=== PATIENT | female | born 1995 | race Caucasian/White ===

== ENCOUNTER 2023-09-11 11:02 | Emergency (ER) | payer OTHER, SELFPAY ==
[2023-09-11 11:10] VITALS: BP 149/82; PULSE 91; RESP 20; TEMP 37; O2SAT 98
--- NOTE | 2023-09-11 12:16 | ED.URI ---
HPI - URI/Sore Throat General Chief Complaint: Upper Respiratory Infection Stated Complaint: Congestion/Cough/Body Aches Time Seen by Provider: 09/11/23 12:16 Source: patient, RN notes reviewed and old records reviewed Mode of arrival: ambulatory Limitations: no limitations History of Present Illness HPI Narrative: 28 year old female who presents to [facility] care with complaints of congestion, headache,and body aches for the past 2 days. Patient reports that she works at [employer] in [place] and has been exposed to COVID patients at the facility. Patient reports that she did home COVID test which was positive but work will not accept her home test. Patient reports that she has been taking Ibuprofen for her symptoms. MD elicited complaint: cough and other (headache and body aches) Onset (ago): day(s) (2) Pain scale (0-10): 3 Able to tolerate fluids by mouth: Yes Treatments prior to arrival: ibuprofen Related Data Home Medications Medication Instructions Recorded Confirmed omeprazole 20 mg capsule,delayed 40 mg PO QAM 09/11/23 09/11/23 release Allergies Allergy/AdvReac Type Severity Reaction Status Date / Time No Known Allergies Allergy Verified 09/11/23 11:29 Review of Systems Review of Systems: CONSTITUTIONAL: Reports malaise, chills, sweats, or fever. EYES: Denies visual changes, redness, or discharge. ENT: Reports rhinorrhea, congestion, sinus pain, no otalgia and no sore throat. CARDIOVASCULAR: Denies chest pain, palpitations, or edema. RESPIRATORY: Reports cough.? Denies dyspnea. GASTROINTESTINAL: Denies abdominal pain, nausea, vomiting, diarrhea SKIN: Denies rash or itching. MUSCULOSKELETAL: Reports myalgia. NEUROLOGIC: Reports headache. All systems reviewed & are unremarkable except as noted in HPI and below PMFSH Past Medical History Medical History (Updated 09/13/23 @ 12:32 by Ema Lowe NP) GERD (gastroesophageal reflux disease) PCOS (polycystic ovarian syndrome) Pilonidal cyst Social History Social History (Updated 09/13/23 @ 12:32 by Ema Lowe NP) Smoking status: Never smoker Alcohol intake: current Alcohol use details: socia Substance use type: does not use Living arrangements: with family Gender identity (if verbalized by the patient): Female Comments At time of signature, agree with nursing past medical, surgical, social and family history. There is no relevant family history pertinent to the presenting complaint Exam Narrative: GENERAL: Well-appearing, well-nourished, and in no acute distress. HEAD: Normocephalic EYES: PERRLA, conjunctivae clear ENT: Nares clear, turbinates edematous and erythematous, clear discharge. Mucous membranes moist. TM pearly john with dull light reflex bilaterally; no tragal tenderness. Oropharynx erythematous without lesions. Tonsils not enlarged and without exudate, no drooling, no hoarseness, no trismus, uvula midline.post nasal drainage NECK: Supple. No lymphadenopathy CHEST: Clear to auscultation, breath sounds equal. No wheezing, rhonchi, rales, or stridor. No respiratory distress, speaks in full sentences.cough dry,SAO2 98% on room air HEART: Regular rate and rhythm. No murmur heard. SKIN: Warm, dry, no rash. NEURO: Alert and oriented x3. PSYCH: Normal mood and affect Course Course Emergency Course: Patient is aware of diagnosis, understands and agrees to treatment plan.? Anticipatory guidance given.? Patient agrees to follow-up as directed and is aware of reasons to seek care at the emergency department. Portions of this record may have been created with voice recognition software Level of Care: Express Care Visit Vital Signs Vital signs: Vital Signs Temperature 37.0 C 09/11/23 11:10 Pulse Rate 91 09/11/23 11:10 Respiratory Rate 20 09/11/23 11:10 Blood Pressure 149/82 H 09/11/23 11:10 Pulse Oximetry 98 09/11/23 11:10 Oxygen Delivery Room Air 12
== END 2023-09-11 12:30 | disposition home or self-care (01) ==
PROVIDERS: Emergency Provider Registered Nurse
DX: U07.1 COVID-19 (principal); K21.9 Gastro-esophageal reflux disease without esophagitis; E28.2 Polycystic ovarian syndrome
CPT/HCPCS: 87426; 99213; C9803; G0463

== ENCOUNTER 2024-02-28 15:28 | Outpatient (CLI) | payer OTHER, SELFPAY ==
[2024-02-28 16:11] LABS: CRP < 0.5 mg/dL (<1.0)
[2024-03-05 08:19] LABS: Immunoglobulin A 318 mg/dL (47-310); TTG IGA AB <1.0 U/mL
== END 2024-02-28 15:29 | disposition home or self-care (01) ==
LOC: ANHLAB 15:30
PROVIDERS: Visit Provider Nurse Practitioner Family
DX: R19.7 Diarrhea, unspecified (principal); R15.2 Fecal urgency
CPT/HCPCS: 36415; 82784; 86140; 86364

== ENCOUNTER 2024-03-22 07:58 | Outpatient (CLI) | payer OTHER, BC, SELFPAY ==
--- NOTE | ~2024-03-22 | NM_ITS ---
EXAM: NM gastric emptying study DATE: 03/22/2024 13:16 INDICATION: Gastroesophageal reflux disease. Nausea. Early satiety. TECHNIQUE: A gastric emptying study was performed using the methodology of Kelsey CEDILLO, et al. J Nucl Med 2007; 48:568-572. The patient was given a meal consisting of 2 scrambled eggs labeled with 0.972 mCi Tc-99m sulfur colloid, 2 slices of toast, two packages of jam, and approximately 120 mL of water . Simultaneous anterior and posterior 1-min images of the abdomen were obtained with the patient supi ne at multiple time points over a total period of 4 hours. The geometric mean of anterior and posteri or views was determined, and the percentage retention was calculated for each time point. COMPARISON: None. FINDINGS: Gastric retention of the radiotracer-labeled meal was 70%, 41%, and 12% at the 1-hour, 2-h our, and 4-hour time points, respectively. With this technique, apparent rapid gastric emptying is loza ggested by <30% gastric retention at 1 hour. Delayed gastric emptying is defined by gastric retention of >90% at 1 hour, >60% retention at 2 hours, or >10% retention at 4 hours. IMPRESSION: 1. Delayed gastric emptying. Reviewed, dictated and finalized at location A.
== END 2024-03-22 07:59 | disposition home or self-care (01) ==
PROVIDERS: PCP Nurse Practitioner; Visit Provider Nurse Practitioner Family
DX: K21.9 Gastro-esophageal reflux disease without esophagitis (principal); R11.0 Nausea; R68.81 Early satiety; K30 Functional dyspepsia
CPT/HCPCS: 78264; A9541

== ENCOUNTER 2024-03-22 08:56 | Outpatient (NON) | payer OTHER, BC, SELFPAY ==
[2024-03-30 19:03] LABS: Calprotectin, Stool 177 mcg/g
[2024-03-31 20:32] LABS: Pancreatic Elastase, Stool >500 mcg/g
== END 2024-03-22 08:57 | disposition home or self-care (01) ==
LOC: ANHLAB 08:58
PROVIDERS: PCP Nurse Practitioner; Visit Provider Nurse Practitioner Family
DX: R15.2 Fecal urgency (principal); R19.7 Diarrhea, unspecified
CPT/HCPCS: 78264; 82653; 83993; A9541

== ENCOUNTER 2024-10-08 09:15 | Emergency (ER) | payer BC, OTHER, SELFPAY ==
[2024-10-08 09:21] VITALS: BP 125/59; PULSE 134; RESP 18; TEMP 36.6; O2SAT 98
--- NOTE | 2024-10-08 09:39 | ED_ITS ---
HPI - URI/Sore Throat General Chief Complaint: Upper Respiratory Infection Stated Complaint: Cough/Chest Tightness/Fever Time Seen by Provider: 10/08/24 09:39 Source: patient Mode of arrival: ambulatory Limitations: no limitations History of Present Illness HPI Narrative: 29-year-old female presented for complaint of cough, headache, body aches, sinus congestion, fever/chills. Also reports nausea and vomiting. Feeling worse x2 days. Denies sob, wheezing. States the vomiting during has been better for the past few weeks, but has had a few episodes in the last 2 days. Taking Tylenol. Notifed OBGYN who advised eval without the need to go to OB, as she is reporting normal movement. Related Data Home Medications ?Medication ?Instructions ?Recorded ?Confirmed ?Last Taken ?Type famotidine 20 mg tablet 20 mg PO DAILY 02/28/24 02/29/24 Unknown History levothyroxine 25 mcg capsule 25 mcg PO DAILY 02/28/24 02/29/24 Unknown History omeprazole 40 mg capsule,delayed 40 mg PO DAILY 02/28/24 02/29/24 Unknown History release Allergies Allergy/AdvReac Type Severity Reaction Status Date / Time No Known Allergies Allergy Verified 10/08/24 09:44 Review of Systems Review of Systems: CONSTITUTIONAL: reports body aches, fever, chills, or sweats. EYES: Denies visual changes, redness, or discharge. ENT: Denies rhinorrhea, congestion, sore throat, or otalgia. CARDIOVASCULAR: Denies chest pain, palpitations, or edema. RESPIRATORY: Reports cough, denies sob, wheezing. GASTROINTESTINAL: Denies abdominal pain, reports nausea, vomiting SKIN: Denies rash MUSCULOSKELETAL: Denies back pain, joint pain, or myalgia. NEUROLOGIC: reports headache All systems reviewed & are unremarkable except as noted in HPI and below PMFSH Past Medical History Medical History Pilonidal cyst GERD (gastroesophageal reflux disease) PCOS (polycystic ovarian syndrome) Social History Social History Smoking status: Never smoker Alcohol intake: current Alcohol use details: socia Substance use type: does not use Living arrangements: with family Gender identity (if verbalized by the patient): Female Comments At time of signature, I have reviewed and agree with nursing past medical, surgical, social and family history unless otherwise noted. Please see nursing chart for further information. There is no relevant family history pertinent to the presenting complaint Exam Narrative: GENERAL: Well-appearing, in no acute distress. EYES: EOMI. No redness or drainage. Conjunctivae normal. ENT: Mucous membranes pink and moist. No rhinorrhea. TMs normal bilaterally. Throat normal. Uvula midline. NECK: Normal AROM. Supple. CHEST: No respiratory distress. Lungs clear to all saunders. HEART: Regular rate and rhythm. No murmur appreciated. ABDOMEN: gravid. SKIN: Warm, dry, no rash. Capillary refill normal. Normal skin turgor. NEURO: Alert and oriented x3. Gait steady. PSYCH: Normal affect. Course Course Emergency Course: Patient is aware of diagnosis, understands and agrees to treatment plan. Anticipatory guidance given. Patient agrees to follow-up as directed and is aware of reasons to seek care at the emergency department. Portions of this record may have been created with voice recognition software Level of Care: Express Care Visit Vital Signs Vital signs: Vital Signs Temperature 98 F 10/08/24 09:21 Pulse Rate 134 H 10/08/24 09:21 Respiratory Rate 18 10/08/24 09:21 Blood Pressure 125/59 L 10/08/24 09:21 Pulse Oximetry 98 10/08/24 09:21 Oxygen Delivery Room Air 10/08/24 09:21 Temperature 98 F 10/08/24 09:21 Pulse Rate 134 H 10/08/24 09:21 Respiratory Rate 18 10/08/24 09:21 Blood Pressure 125/59 L 10/08/24 09:21 Pulse Oximetry 98 10/08/24 09:21 Oxygen Delivery Room Air 10/08/24 09:21 MDM - URI/Sore Throat MDM Narrative Medical decision making narrative: positive influenza. FHT 150 Discussed physical exam findings. Advised supportive measures and signs/symptoms to go to the ER. Pt is appropriate for outpt treatment and f/u. Differential Diagnosis Differential diagnosis: Likely upper respiratory infection, viral infection, bronchitis, influenza, pharyngitis and other Discharge Plan Discharge Clinical Impression: Influenza Patient Disposition: Home, Self-Care Condition: Stable Instructions: Antibiotic Form, Influenza (ED) Additional Instructions: Influenza positive You should avoid crowds until you are fever free for 24 hours without the use of fever reducing medications, or the symptoms are improved Rest. Drink plenty of fluids. Tylenol 1000mg every 8 hours as needed for pain/fever Recommend Flonase spray and Zyrtec (or Claritin/Cheryle) for sinus pressure/congestion over the counter Cough syrup may cause drowsiness; avoid driving or take it at night time. speak with your OBGYN before taking any [id number] medications during Follow up with your primary care provider as needed Go to the ER for worsening symptoms or concerns Patient Language: Citizen Of [place] Prescriptions: No Action omeprazole 40 mg capsule,delayed release(DR/EC) 40 mg PO DAILY famotidine 20 mg tablet 20 mg PO DAILY levothyroxine 25 mcg capsule 25 mcg PO DAILY metoclopramide HCl [Reglan] 10 mg tablet 10 mg PO .ac Qty: 90 3RF Follow-up/Referrals: Jose A,Radha Alvarez [Primary Care Provider] - Stand Alone Forms: Work/School Release IP
[2024-10-08 09:45] LABS: EDCOVIDSCREEN Negative (Negative); EDINFLUASCREEN Positive (Negative); EDINFLUBSCREEN Negative (Negative)
[2024-10-08 09:55] VITALS: PULSE 120
--- OUTSIDE RECORDS SUMMARY | 2024-10-12 10:08 | XMS_ITS | Clinical Summary ---
Author Organization [facility] Address [address] [place] [address] Care Team Providers Care Hydraulic Rockbreaker Operator Name Role Phone Jose ARadha YUKO Primary Care Provider [phone] Allergies No known active allergies Medications ondansetron ODT (ZOFRAN-ODT) 4 mg disintegrating tabletIndications: Chronic GERD Take 1 tablet (4 mg total) by mouth every 8 (eight) hours as needed for nausea or vomiting 30 tablet 1 4 10/18/19 25 Active levothyroxine (SYNTHROID) 25 mcg tabletIndications: Family planning education, guidance, and counseling,Other specified hypothyroidism TAKE 1 TABLET (25 MCG TOTAL) BY MOUTH BOILER ENGINEER BEFORE BREAKFAST 30 tablet 3 4 12/19/19 25 Active famotidine (PEPCID) 20 mg tabletIndications: Kristian-Shafer Syndrome Take 1 tablet (20 mg total) by mouth 2 (two) times a day 180 tablet 1 4 07/03/20 25 Active omeprazole (PriLOSEC) 40 mg capsuleIndications :Chronic GERD Take 1 capsule (40 mg total) by mouth daily 90 capsule 1 4 07/03/20 25 Active Active Problems Problem Noted Date Diagnosed Date Irritable bowel syndrome with diarrhea 4 PCOS (polycystic ovarian syndrome) 10/19/2023 Assessment & Plan (10/19/2023 5:29 PM SEWING MACHINE TESTER): Stable, follows with WELL SERVICE FLOORPERSON Trying to get Continue Metformin and levothryoxine History of ovarian cyst 09/27/2023 Anxiety 07/17/2021 Sacrococcygeal disorders, 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 08/07/2015 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 Overview (11/03/2023): Overview: TSH nl TPO 403 Needs yearly TSH No masses noted TSH nl TPO 403 Needs yearly TSH No masses noted Assessment & Plan (10/19/2023 5:32 PM SEWING MACHINE TESTER): History of thyroid goiter; last TSH 2.81 Had been having yearly US that were normal so was moved to every 3 years; patient due for follow up Migraine with aura and witho ut status migrainosus, not intractable 05/31/2015 Gastro-esophageal reflux disease without esophag itis 05/25/2015 Overview (11/03/2023): Overview: Long hx--never been scoped Father with GERD h pylori negative stool Ag 06/04 Should be scoped if still pain on prilosec Long hx--never been scoped Father with GERD h pylori negative stool Ag 06/04 Should be scoped if still pain on prilosec Assessment & Plan (10/19/2023 5:16 PM SEWING MACHINE TESTER): Chronic, has had since age 13 Omeprazole 40 mg daily Famotidine 20 mg as needed Mild intermittent asthma, uncomplicated 05/20/20 15 Overview (11/03/2023): Overview: Mainly childhood Seasonal problems in spring Peak flows 450 8/15 off all asthma meds Mainly childhood Seasonal problems in spring Peak flows 450 8/15 off all asthma meds Other specified disorders of Eustachian tube, unspecified ear 06/08/2014 Estimated Date of Delivery Comme nts Yes 01/15/2025 Based on last me nstrual period of 04/10/2024 Encounters Date Type Department Care Team Description 10/05/2024 3:15 PM SEWING MACHINE TESTER Office Visit [facility] [address] [place] [address] Ayleen Frazier PA 25 weeks gestation of (Primary Dx) 09/27/2024 12:55 PM SEWING MACHINE TESTER - 09/27/2024 11:59 PM SEWING MACHINE TESTER Hospital Encounter [facility] Maternal Medicine Ultrasound[facility] [address] [place] [phone] Family history of congenital heart defect Discharge Disposition: Discharge to home or self care 09/06/2024 3:45 PM SEWING MACHINE TESTER Office Visit [facility] [address] [place] [address] Elida Cotton MD care, first in second trimester (Primary Dx); Other iron deficiency anemia; Hypothyroidism, unspecified type 08/30/2024 1:39 PM SEWING MACHINE TESTER - 08/30/2024 11:59 PM SEWING MACHINE TESTER Hospital Encounter [facility] Maternal Medicine [facility]trasound[facility] [address] [place] [address] Encounter for supervision of normal first in first trimester; 12 weeks gestation of Discharge Disposition: Discharge to home or self care 08/14/2024 3:56 PM SEWING MACHINE TESTER - 08/14/2024 11:59 PM SEWING MACHINE TESTER Hospital Encounter [facility] [address] [place] [address] Pelvic and perineal pain Discharge Disposition: Discharge to home or self care 08/08/2024 8:45 AM SEWING MACHINE TESTER Lab [address] [place] [address] First trimester 08/08/2024 Telephone [facility] [address] [place] [address] Rigo, Ellen L., RN In office doppler 08/02/2024 3:45 PM SEWING MACHINE TESTER Routine [facility] [address] [place] [address] Elida Cotton MD First trimester (Primary Dx); Primary stress urinary incontinence from Last 3 Months Immunizations Name Administration Dates Next Due BCG 04/05/2014 DTP / HiB 11/27/1996, 6,1995,10/12 DTaP 03/06/1996,1995,1995 HPV9 04/18/2018,08/18/2012 Hep A, Pediatric 09/09/2009,05/11/2008 Hep B Vaccine 03/06/1996,1995,1995 Hep B, Adolescent or Pediatric 03/06/1996,1995,1995 IPV 02/21/2001, 6,1995,10/12 Influenza, Quadrivalent, Spl it, Preservative Free, Intramuscular 05/18/2017 Influenza, Split 06/25/2014 Influenza, Trivalent, Cell Culture-based MDCK, Preservative Free, Antibiotic Free, Intramuscular 06/20/2020,07/15/2019 Influenza, Trivalent, Preser vative Free, Intramuscular 06/05/2024 Influenza, Unspecified 07/22/2023,2021,06/09/2021,07/15,06/25/2014 MMR 03/27/2020,02/21/2001,11/27/1996 Meningococcal MCV4P (Menactra) 06/25/2014 OPV 03/06/1996,1995,1995 Pfizer SARS-CoV-2 Monovalent Vaccination (12+ Yrs) PURPLE 10/16/2021 TD Preservative Free 05/11/2008,02/22/20 01,03/06/1996,12/12,1995 Tdap 03/07/2020 Varicella 05/02/2020, 0,05/11/2008,09/29 Surgical History Surgery Date Site/Laterality Comments FRACTURE SURGERY NASAL SINUS SURGERY PILONIDAL CYSTECTOMY 09/20/2018 - 09/19/2019 Medical History Medical History Date Comments GERD (gastroesophageal reflux disease) PCO (polycystic ovaries) Anxiety IBS (irritable bowel syndrome) Family History Medical History Relation Name Comments Hypertension Father Father Alcohol abuse Maternal Grandfather Maternal grandfathe r Cancer Maternal Grandfather Maternal grandfather Alzheimer's disease Maternal Grandmother Maternal gran dmother Alcohol abuse Mother Mother Depression Mother Mother Miscarriages / Stillbirths Mother Mother Breast cancer Other Aunt Cancer Paternal Grandfather Paternal grandfather Heart disease Paternal Grandfather Paternal grandfathe r Breast cancer Paternal Grandmother Paternal grandfater Cancer Paternal Grandmother Paternal grandfater Colon cancer Neg Hx Ovarian cancer Neg Hx Uterine cancer Neg Hx Relation Name Status Comments Father Father Maternal Grandfather Maternal grandfather Maternal Grandmother Maternal grandmother Mother Mother Other Aunt Alive Paternal Grandfather Paternal grandfather Paternal Grandmother Paternal grandfater Social History Tobacco Use Types Packs/Day Years Used Date Smoking Tobacco: Never Smokeless Tobacco: Never Tobacco Cessation:Counseling Given: Not Answered AUDIT-C Answer Date Recorded Q1: How often do you have a drink containing alc ohol? 2-4 times a month 10/19/2023 Q2: How many drinks containi ng alcohol do you have on a typical day when you are drinking? 1 or 2 10/19/2023 Q3: How often do you have si x or more drinks on one occasion? 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 Not on file Not o n file Obstetrics History Para Term AB IAB SAB Ectopic Multiple Livin g Live Births 1 0 0 0 0 0 0 0 0 0 0 Date Outcome GA Total Labor Labor/2nd/3rd Weight Sex Type Anes PTL Lilly A1 A5 Name Clin Current Summary Episode Dates Number of Fetuses Estimated Date of Delivery 06/05/2024 - Present (10/12/2024) 1 01/15/2025 (set by Elida Cotton MD on 06/05/2024 based on Last Menstrual Period on 04/10/2024) Dating Summary Based On DIANA GA Diff Last Menstrual Period on 04/10/2024 01/15/2025 Working Ultrasound on 06/05/2024 01/16/2025 -1d GA:7w6d Overview and Plan :Carlos sex:Male Vitals Pregravid Weight Height TWG (As of 10/12/2024) Pregrav id BMI 93 kg (205 lb) 167.6 cm (5' 6 ) -0.907 kg (-2 lb) 33.1 0 Notes Progress Notes - Office Visi t - 10/05/2024 - GA:25w3d 10/05/2024 - 25w3d - Ayleen Frazier PA Return OB Note at 25w3d complicated by -FOB with CHD - anatomy and ECHO with MFM - ordered -anx - no meds; previously on zoloft. Can restart PP -Hypothyroid - continue synthroid; TSH 2.2 on 08/08 -Delayed gastric emptying and Reflux- she is on reglan; omeprazole and famotidine. -Iron deficiency anemia - daily PO iron repeat iron studies at her 28 wga lab (hold iron for several days prior to) S +FM. Denies CEDILLO, changes in vision, spotting, leaking fluid or cramping. Restless leg syndrome is worsening. PFPT started yesterday and she liked it! She found everything to be normal. O BP 112/80 (BP Location: Left arm, Patient Position: Sitting) Ht 167.6 cm (5' 6 ) Wt 203 lb (92.1 kg) LMP 04/10/2024 BMI 32.77 kg/m?? See ACOG Labs No results found for: GBS Plan -Manager Marketing Communications- looking into it -breastpump ordered -RLS: will check iron next visit and start mg citrate -RTO 3 week(s) for tdap, 3rd trimester labs, TSH and iron labs (hold iron 3 days prior) Ayleen Frazier PA-C Cosigned by Elida Cotton MD at 10/06/2024 12:52 PM SEWING MACHINE TESTER NG MACHINE TESTER NG MACHINE TESTER Progress Notes - Office Visi t - 09/06/2024 - GA:21w2d 09/06/2024 - - Elida Cotton MD Return OB Note at 21w2d complicated by -FOB with CHD - anatomy and ECHO with MFM - ordered -anx - no meds; previously on zoloft. Can restart PP -Hypothyroid - continue synthroid; TSH 2.2 on 08/08 -Delayed gastric emptying and Reflux- she is on reglan; omeprazole and famotidine. -Iron deficiency anemia - daily PO iron repeat iron studies at her 28 wga lab (hold iron for several days prior to) S She reports doing somewhat better in terms of GI. She did not have a chance to discss with her senior business manager but over all feels symptoms are less frequent. We discussed adding in an ensure daily. Having some anxiety and mood disturbance. Previously on zoloft which was helpful but wants to try counseling first. We did discuss option of restarting immediately PP as well. Round ligament pain - reviewed. Is starting PFPT. O BP 118/72 (BP Location: Left arm, Patient Position: Sitting) Wt 201 lb (91.2 kg) LMP 04/10/2024 BMI 32.44 kg/m?? See ACOG Plan RTO 4 week(s) Elida Cotton MD NG MACHINE TESTER Progress Notes - Routine Pre elsie - 08/02/2024 - GA:16w2d 08/02/2024 - - Elida Cotton MD Return OB Note at 16w2d complicated by -FOB with CHD - anatomy and ECHO with MFM - ordered -anx - no meds -Hypothyroid - continue synthroid; TSH 2.9 06/05. -Delayed gastric emptying and Reflux- she is on reglan; omeprazole and famotidine. -Iron deficiency anemia - daily PO iron repeat iron studies 20-24wga (needs to hold PO iron x 3 days) S She reports she still has emesis once a day - usually upon first waking. Zofran is really constipating. Reglan was prescribed previously but hard to take q6 hours. Reviewed. Will reinitate. Discussed elevated head of bed, trying bland cereal right upon wakening. Has anatomy scheduled with MFM. O BP 117/78 Wt 203 lb (92.1 kg) LMP 04/10/2024 BMI 32.77 kg/m?? See ACOG Plan RTO 4 week(s) PFPT for stress UI Will touch base with GI Reviewed cough medications. Elida Cotton MD NG MACHINE TESTER Progress Notes - Routine Pre elsie - 07/07/2024 - GA:12w4d 07/07/2024 - 12w4d - Elida Cotton MD Return OB Note at 12w4d complicated by -FOB with CHD - anatomy and ECHO with MFM - ordered -anx - no meds -Hypothyroid - continue synthroid; TSH 2.9 06/05. -Delayed gastric emptying and Reflux- she is on reglan; omeprazole and famotidine. -Iron deficiency anemia - daily PO iron repeat iron studies 20-24wga (needs to hold PO iron x 3 days) S She reports doing okay overall - today was a bad day as far as nausea/vomiting! Has some zofran at home. A lot of her symptoms manifest as diarrhea due to her IBS. Tolerating the PO iron fine. Plans NIPT today O BP 123/86 Wt 199 lb (90.3 kg) LMP 04/10/2024 BMI 32.12 kg/m?? See ACOG Plan RTO 4 week(s) Weight last visit was 201# Elida Cotton MD Progress Notes - Initial Pre elsie - 06/05/2024 - GA:8w0d 06/05/2024 - 8w0d - Elida Cotton MD Patient ID: Lucille Betts is a 28 y.o. female Subjective Chief Complaint: No chief complaint on file. HPI Here for initial Patient's last menstrual period was 04/10/2024. Lucille presents with Bharathi for new OB visit. This was a result of letrozole, first month, due to irregular menses. She was started on synthroid and metformin prior to this due to irregular menses history. Having some nausea but no emesis. Reports she was diagnosed with delayed gastric emptying she is prescribed reglan QID. She has some looser stools as well. 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 Her last pap smear was 01/10. History of abnormal paps: no She denies h/o STDS or HSV. Medical She has a past medical history of Anxiety, GERD (gastroesophageal reflux disease), IBS (irritable bowel syndrome), and PCO (polycystic ovaries). Surgical She has a past surgical history that includes Fracture surgery; Nasal sinus surgery; and Pilonidal Cystectomy (2019). Family Family History Problem Relation Age of Onset Breast cancer Paternal Grandmother Cancer Paternal Grandmother Breast cancer Other Alcohol abuse Mother Depression Mother Miscarriages / Stillbirths Mother Hypertension Father Alcohol abuse Maternal Grandfather Cancer Maternal Grandfather Alzheimer's disease Maternal Grandmother Cancer Paternal Grandfather Heart disease Paternal Grandfather Colon cancer Neg Hx Uterine cancer Neg Hx Ovarian cancer Neg Hx No family h/o cystic fibrosis, CHD, bleeding disorders, down's syndrome No family history of DVT/PE, ovarian cancer, uterine cancer Genetic History: [-] Mother's Age > 34 years [-] Sickle Cell Disease or Trait () [-] Thalasemia (Amharic, Latvian, Medit or ; MCV <80) [-] Ceasar Sachs Disease (Congregational, Cajun, [place]inese [place]) [-] Down's Syndrome [-] Neural Tube Defects (Meningomyelocele, Spina Bifida or Anencephaly) [-] Other Developmental Delay [-] Cystic Fibrosis [-] Freehold's Chorea [-] Muscular Dystrophy [-] Hemophilia [-] Other Heritable condition Social Patient reports that she has never smoked. She has never used smokeless tobacco. She reports that she does not use drugs. Patient reports consuming alcoholic drinks , with a daily consumption of drinks. Patient denies daily consumption of 6 or more alcoholic drinks at one occasion. . She denies having any cats in the home. She had chicken pox vaccine as a child Meds Current Outpatient Medications: famotidine (PEPCID) 20 mg tablet, Take 1 tablet (20 mg total) by mouth 2 (two) times a day, Disp: 180 tablet, Rfl: 1 levothyroxine (SYNTHROID) 25 mcg tablet, TAKE 1 TABLET (25 MCG TOTAL) BY MOUTH BOILER ENGINEER BEFORE BREAKFAST, Disp: 30 tablet, Rfl: 0 omeprazole (PriLOSEC) 40 mg capsule, Take 1 capsule (40 mg total) by mouth daily, Disp: 90 capsule, Rfl: 1 ondansetron ODT (ZOFRAN-ODT) 4 mg disintegrating tablet, Take 1 tablet (4 mg total) by mouth every 8 (eight) hours as needed for nausea or vomiting, Disp: 30 tablet, Rfl: 1 Allergies Patient has no known allergies. Objective BP 120/80 Wt 215 lb (97.5 kg) LMP 04/10/2024 BMI 34.70 kg/m?? Gen-NAD TVUS- single live IUP measuring 7w6d c/w LMP of 8w0d. +FHT Assessment/Plan 28 year old G1 at 8w0d at new OB Supervision of PNV with folic acid daily OB labs ordered - OB panel, HIV, urine culture, GC/CT Pap 2022 wnl Discussed options for testing for cystic fibrosis, SMA and Fragile X. Genetic screening offered including first look screen, NIPT and quad screen. Patient desires NIPT and carrier screen. Reviewed course of care and normal Dietary and activity recommendations reviewed FOB with history of two holes in heart as a baby no surgery - MFM anatomy (18- 20 wga) and echo (24 wga). Will order next visit Anxiety - no meds currently Thyroid - TSH today. Continue synthroid. Started during her infertility eval Can stop metformin. Delayed gastric emptying and Reflux- she is on reglan; omeprazole and famotidine. Follow up in 1 month Elida Cotton MD Last Filed Vital Signs Vital Sign Reading Time Taken Comments Blood Pressure 112/80 10/05/2024 3:30 PM SEWING MACHINE TESTER Pulse 94 11/03/2023 4:49 PM SEWING MACHINE TESTER Temperature 36.5 ??C (97.7 ??F) 11/03/2023 4:49 PM CS T Respiratory Rate 16 10/19/2023 4:53 PM SEWING MACHINE TESTER Oxygen Saturation 98% 11/03/2023 4:49 PM SEWING MACHINE TESTER Inhaled Oxygen Concentration - - Weight 92.1 kg (203 lb) 10/05/2024 3:30 PM SEWING MACHINE TESTER Height 167.6 cm (5' 6 ) 10/05/2024 3:30 PM SEWING MACHINE TESTER Body Mass Index 32.77 10/05/2024 3:30 PM SEWING MACHINE TESTER Plan of Treatment Health Maintenance Due Date Last Done Comments HPV Vaccines (3 - 3-dose series) 07/11/2018 04/18/2018, 08/18/2012 Covid-19 Vaccine ( season) 2024 10/16/2021, 12/14/2020, 11/23/2020 Depression Screening 10/19/2024 10/19/2023 Pneumococcal vaccine <65 (1 of 2 - PCV) 11/29/2024 Postponed from 2001 (Patient declined, but will receive in the future) Regular Well Visit/Exam 18-64 01/13/2025 01/14/2024, 10/19/2023, 01/08/2023 Cervical Cancer Screening 01/08/2026 01/08/2023 DTaP/Tdap/Td Vaccine (6 - Td or Tdap) 03/07/2030 03/07/2020, 05/11/2008, 02/21/2001, Additional history exists Varicella Vaccines Completed 05/02/2020, 0 03/27/2020, 05/11/2008, Additional history exists Hepatitis C Screening Completed 06/05/2024 Influenza Vaccine Completed 06/05/2024, , 06/20/2022, Additional history exists Procedures Procedure Name Priority Date/Time Associated Diagnosis Comments POCT OB URINE SHORT DIP (GLUCOSE, PROTEIN, KETONES) Routine 10/05/2024 3:35 PM SEWING MACHINE TESTER 25 weeks gestation of US OB HEART WITH US FOLLOW UP (C) Schedule Routine, Read Routine (OP Routine) 09/27/2024 2:16 PM SEWING MACHINE TESTER Family history of congenital heart defect POCT OB URINE SHORT DIP (GLUCOSE, PROTEIN, KETONES) Routine 09/06/2024 3:50 PM SEWING MACHINE TESTER care, first in second trimester US OB DETAIL ANATOMY SINGLE OR FIRST GESTATION Schedule Routine, Read Routine (OP Routine) 08/30/2024 2:57 PM SEWING MACHINE TESTER Encounter for supervision of normal first in first trimester 12 weeks gestation of URINE CULTURE Routine 08/14/2024 4:20 PM SEWING MACHINE TESTER Pelvic and perineal pain FERRITIN Routine 08/08/2024 8:45 AM SEWING MACHINE TESTER First trimester IRON PROFILE W/ IBC Routine 08/08/2024 8:45 AM SEWING MACHINE TESTER First trimester THYROID FUNCTION CASCADE Routine 08/08/2024 8:45 AM SEWING MACHINE TESTER First trimester POCT OB URINE SHORT DIP (GLUCOSE, PROTEIN, KETONES) Routine 08/02/2024 3:47 PM SEWING MACHINE TESTER First trimester HEPATITIS C ANTIBODY Routine 06/05/2024 4:11 PM CDT Encounter for supervision of normal first in first trimester PAP WITH REFLEX TO HIGH RISK HPV Routine 01/08/2023 4:06 PM CDT Well woman exam with routine gynecological exam from Last 3 Months or Most Recently Relevant to Health Maintenance Results * POCT OB urine short dip (glucose, protein, ketones) (10/05/2024 3:35 PM SEWING MACHINE TESTER) Glucose, ur, POC Negative Negative MG/DL Protein, ur, POC Negative Negative Ketones, ur, POC Negative Negative Lot Number [id number] Comment:Kellen:small Urine 10/05/2024 3:35 PM SEWING MACHINE TESTER Result [facility] Ayleen VALENCIA POINT OF CARE TEST ORDERA BLES Final Result * US OB Heart with US Follow up (C) (09/27/2024 2:16 PM SEWING MACHINE TESTER) Fetus# Fetus1 VIEWPOINT Estimated Weight 697 g&grams VIEWPOINT Placenta Details posterior VIEWPOINT Presentation Vertex VIEWPOINT Anatomical Region Laterality Modality Body N/A Ultrasound 09/27/2024 1:01 PM SEWING MACHINE TESTER Impressions 09/27/2024 6:15 PM SEWING MACHINE TESTER Single intrauterine at 24w 2d with positive cardiac activity. Appropriate interval growth. AGA growth is noted with EFW at the 47%. ?? There are no cardiac structural malformations identified on screening echocardiogram. Normal amniotic fluid assessment. ??Normal posterior placenta. ?? Narrative Procedure Note Lizbeth Swenson MD - 09/27/2024 IMPRESSION: Single intrauterine at 24w 2d with positive cardiac activity. Appropriate interval growth. AGA growth is noted with EFW at the 47%. There are no cardiac structural malformations identified onscreening echocardiogram. Normal amniotic fluid assessment. Normal posterior placenta. Result [facility] Elida Cotton MD IMG OB US PROCEDURES F inal Result * POCT OB urine short dip (glucose, protein, ketones) (09/06/2024 3:50 PM SEWING MACHINE TESTER) Glucose, ur, POC Negative Negative MG/DL Protein, ur, POC Negative Negative Ketones, ur, POC Negative Negative Lot Number [id number] Urine 09/06/2024 3:50 PM SEWING MACHINE TESTER Result [facility] Elida Cotton MD POINT OF CARE TEST ORD ERABLES Final Result * US OB detail anatomy single or first gestation (08/30/2024 2:57 PM SEWING MACHINE TESTER) Fetus# Fetus1 VIEWPOINT Estimated Weight 342 g&grams VIEWPOINT Placenta Details posterior VIEWPOINT Presentation Variable VIEWPOINT Anatomical Region Laterality Modality Body N/A Ultrasound 08/30/2024 1:55 PM SEWING MACHINE TESTER Impressions 08/30/2024 2:54 PM SEWING MACHINE TESTER Single intrauterine @ 20w 2d with positive cardiac activity. size is consistent with the clinically established dates. AGA growth is noted with EFW at the 43%. There are no structural malformations identified. Normal fluid assessment. ??Normal posterior placenta. Transabdominal cervical length of 45.4 mm was normal. ?? Narrative Procedure Note Lizbeth Swenson MD - 08/30/2024 IMPRESSION: Single intrauterine @ 20w 2d with positive cardiac activity. size is consistent with the clinically established dates. AGA growth is noted with EFW at the 43%. There are no structural malformations identified. Normal fluid assessment. Normal posterior placenta. Transabdominal cervical length of 45.4 mm was normal. us Elida Cotton MD IMG OB US PROCEDURES F inal Result * Urine culture Urine, clean voided (08/14/2024 4:20 PM SEWING MACHINE TESTER) Report Final Report: Less than 100,000 colonies/mL (clinically insignificant growth based on current clinical standards) Comment:Testing performed by : [facility], [address] [facility] [place] [address] Organism (CLINICALLY INSIGNIFICANT GROWTH RUPAL MEEKS (ARCENIO) Urine, clean voided 08/14/2024 4:20 PM SEWING MACHINE TESTER 08/15/2024 4:52 AM SEWING MACHINE TESTER Narrative [facility] (ARCENIO) - 08/16/2024 1:15 PM SEWING MACHINE TESTER Testing performed by [facility] Microbiology Laboratory ([phone]) us Elida Cotton MD LAB MICROBIOLOGY - GEN ERAL ORDERABLES Final Result [facility] ([place]) [address] Department [place] [address] * Thyroid Function [place] (08/08/2024 8:45 AM SEWING MACHINE TESTER) TSH 2.29 0.30 - 4.20 mcIUnit/mL Blood 08/08/2024 8:45 AM SEWING MACHINE TESTER 08/08/2024 11:07 AM SEWING MACHINE TESTER Elida Cotton MD LAB BLOOD ORDERABLES F inal Result Performing Organization Address [facility] Co de Phone Number [facility] [address] [facility] [place] [address] * (ABNORMAL) Iron profile w/ IBC (08/08/2024 8:45 AM SEWING MACHINE TESTER) Pathologist [facility] Iron 58 35 - 145 mcg/dL TIBC 337 250 - 400 mcg/dL [facility] Transferrin saturation 17(L) 20 - 50 % [facility] Blood 08/08/2024 8:45 AM SEWING MACHINE TESTER 08/08/2024 11:07 AM SEWING MACHINE TESTER Result [facility] Elida Cotton MD LAB BLOOD ORDERABLES F inal Result Performing Organization Address [facility]/ZIP Co de Phone Number [facility] [address] [place] [address] * Ferritin (08/08/2024 8:45 AM SEWING MACHINE TESTER) Pathologist [facility] Ferritin 31 15 - 150 ng/mL Blood 08/08/2024 8:45 AM SEWING MACHINE TESTER 08/08/2024 11:07 AM SEWING MACHINE TESTER Result [facility] Elida Cotton MD LAB BLOOD ORDERABLES F inal Result Performing Organization Address City/[facility]/ZIP Co de Phone Number [facility] [address] [place] [address] * (ABNORMAL) POCT OB urine short dip (glucose, protein, ketones) (08/02/2024 3:47 PM SEWING MACHINE TESTER) Glucose, ur, POC Negative Negative MG/DL Protein, ur, POC Negative Negative Ketones, ur, POC Negative Negative Lot Number [id number] Urine 08/02/2024 3:47 PM SEWING MACHINE TESTER Elida Cotton MD POINT OF CARE TEST ORD ERABLES Final Result * Hepatitis C antibody Blood (06/05/2024 4:11 PM CDT) Hep C Ab Nonreactive Nonreactive Comment: Interpretive Data Nonreactive: Antibodies to HCV not detected. Does NOT exclude the possibility of recent exposure to HCV. Equivocal: Equivocal for HCV antibodies. Supplemental molecular testing will be automatically performed to determine infection status in accordance with current CDC screening recommendations. ?? Reactive: Positive for HCV antibodies. ??This may represent current or past HCV infection. Supplemental molecular testing will be automatically performed to determine ??current infection status in accordance with current CDC screening recommendations. Interpretive data was last revised on 2019. Blood 06/05/2024 4:11 PM CDT 06/05/2024 7:52 PM CDT Elida Cotton MD LAB MICROBIOLOGY - GEN ERAL ORDERABLES Final Result [facility] [place] [address] [place] [address] * Pap with reflex to High Risk HPV (01/08/2023 4:06 PM CDT) Thin prep (Pap test) 01/08/2023 4:06 PM CDT 01/11/2023 1:44 PM CDT Narrative PATHOLOGY [facility] - 01/15/2023 3:58 PM CDT EPIC results best viewed via link to PDF [place] [address] [place], [place] ??[address] Tele: ?? Milly Sheth MD - Maths Tutor CYTOLOGY REPORT Note to Patients: This report may contain a detailed description of human tissue sent by a health care provider to the laboratory for pathologic evaluation. The content of this report is essential for diagnosis and may provide important critical findings. This information may be unfamiliar to patients to review without a medical professional present. It is advised that the patient review this report in the presence of a health care provider who can answer questions and explain the details. Patient Name: ??LUCILLE BETTS Address: ??[address] [place] [address] ??[id number]- Gender: ??F : ??1995 (Age: 27) Service: ?? Location: ?? Hospital #: ??[id number] Patient Type: ??[facility] SPECIMEN Taken: ??01/08/2023 Reported: ??01/15/2023 Physician(s): ? Elida Cotton M.D. FINAL DIAGNOSIS: SOURCE OF SPECIMEN ?- ThinPrep Pap w/ reflex HPV: STATEMENT OF ADEQUACY Source: ??Cervical/Endocervical ?- Satisfactory for interpretation ?- Endocervical /Transformation Zone component present ?- Case screened using computer assisted imaging technology ? GENERAL CATEGORIZATION: ?- Negative for intraepithelial lesion or malignancy ? cad/01/15/2023 15:58Ebony Avila M.S., CT (ASCP) Report Reviewed and Electronically Signed By ??Ebony Avila M.S., CT (ASCP)Clerical Data Follow A; G0145 CLINICAL DIAGNOSIS AND HISTORY Contraceptive History: IUD REPORT IMAGES AND/OR SCANNED DOCUMENTS ONLY VIEWABLE IN PDF FORMAT The Pap test is a screening test used to aid in the detection of cervical cancer and its precursors. It should not be the sole means by which malignant and premalignant lesions are diagnosed. ??Both false negative and false positive results may occur. ??It also has poor sensitivity for the detection of endometrial lesions and should not be used to evaluate suspected endometrial abnormalities. ??For these reasons it is most important to obtain Pap tests at regular intervals, as recommended by your physician or nurse practitioner. us Elida Cotton MD LAB CYTOLOGY ORDERABLE S Final Result PATHOLOGY [facility] Laboratory Receiving [address] [place] [address] from Last 3 Months or Most Recently Relevant to Health Maintenance Insurance [employer]ETNA SIG [id number] AETNA SIG [id number] BLUE ACCESS OOS Care Teams Hydraulic Rockbreaker Operator Relationship Specialty Start Date End Date Radah Naranjo NP PCP - General Family Medicine 10/19/23
--- OUTSIDE RECORDS SUMMARY | 2024-10-12 10:08 | XMS_ITS | Referral Summary ---
Author Organization [facility] Address [address] [place] [address] Care Team Providers Care Rn Procedures Name Role Phone Jose ARadha YUKO Primary Care Provider [phone] Encounters Date Type Department Care Team Description 10/05/2024 3:15 PM STORE SHOPPER Office Visit [facility] [address] [place] [address] Ayleen Frazier PA 25 weeks gestation of (Primary Dx) 09/27/2024 12:55 PM STORE SHOPPER - 09/27/2024 11:59 PM STORE SHOPPER Hospital Encounter [facility] Maternal Medicine [facility] [address] [place] [address] Family history of congenital heart defect Discharge Disposition: Discharge to home or self care 09/06/2024 3:45 PM STORE SHOPPER Office Visit [facility] [address] [place] [address] Elida Cotton MD care, first in second trimester (Primary Dx); Other iron deficiency anemia; Hypothyroidism, unspecified type 08/30/2024 1:39 PM STORE SHOPPER - 08/30/2024 11:59 PM STORE SHOPPER Hospital Encounter [facility] Maternal Medicine Ultrasound-[facility] [address] [place] [address] Encounter for supervision of normal first in first trimester; 12 weeks gestation of Discharge Disposition: Discharge to home or self care 08/14/2024 3:56 PM STORE SHOPPER - 08/14/2024 11:59 PM STORE SHOPPER Hospital Encounter [facility] Laboratory [address] [place] [address] Pelvic and perineal pain Discharge Disposition: Discharge to home or self care 08/08/2024 8:45 AM STORE SHOPPER Lab [facility] [address] [facility] [address] [place] [address] First trimester 08/08/2024 Telephone [facility] [place] [address] [place] [address] Ellen Sierra RN In office doppler 08/02/2024 3:45 PM STORE SHOPPER Routine [facility] [place] [address] [place] [address] Elida Cotton MD First trimester (Primary Dx); Primary stress urinary incontinence from Last 3 Months Allergies No known active allergies Medications ondansetron ODT (ZOFRAN-ODT) 4 mg disintegrating tabletIndications: Chronic GERD Take 1 tablet (4 mg total) by mouth every 8 (eight) hours as needed for nausea or vomiting 30 tablet 1 4 10/18/19 25 Active levothyroxine (SYNTHROID) 25 mcg tabletIndications: Family planning education, guidance, and counseling,Other specified hypothyroidism TAKE 1 TABLET (25 MCG TOTAL) BY MOUTH UTILITIES SERVICE INVESTIGATOR BEFORE BREAKFAST 30 tablet 3 4 12/19/19 [...] 10/19/2023 Assessment & Plan (10/19/2023 5:29 PM STORE SHOPPER): Stable, follows with [facility] Trying to get Continue Metformin and levothryoxine History of ovarian cyst 09/27/2023 Anxiety 07/17/2021 Sacrococcygeal disorders, 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 08/07/2015 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 Overview (11/03/2023): Overview: TSH nl TPO 403 Needs yearly TSH No masses noted TSH nl TPO 403 Needs yearly TSH No masses noted Assessment & Plan (10/19/2023 5:32 PM STORE SHOPPER): History of thyroid goiter; last TSH 2.81 [...] prilosec Assessment & Plan (10/19/2023 5:16 PM STORE SHOPPER): Chronic, has had since age 13 Omeprazole 40 mg daily Famotidine 20 mg as needed Mild intermittent asthma, uncomplicated 05/20/20 15 Overview (11/03/2023): Overview: Mainly childhood Seasonal problems in spring Peak flows 450 05/04 off all asthma meds Mainly childhood Seasonal problems in spring Peak flows 450 05/04 off all asthma meds Other specified disorders of Eustachian tube, unspecified ear 06/08/2014 Estimated Date of Delivery Comme nts Yes 01/15/2025 Based on last me nstrual period of 04/10/2024 Immunizations Name Administration Dates Next Due BCG [...] 05/11/2008,02/22/20 01,03/06/1996,12/12,1995 Tdap 03/07/2020 Varicella 05/02/2020, 0,05/11/2008,09/29 Social History Tobacco Use Types Packs/Day Years [...] on file Legal Sex Female 11:57 AM STORE SHOPPER Gender Identity Female 10/18/2023 7:29 PM STORE SHOPPER Sexual Orientation Not on file 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 Not on file Not o n file Last Filed Vital Signs Vital Sign Reading Time Taken Comments Blood Pressure 112/80 10/05/2024 3:30 PM STORE SHOPPER Pulse 94 11/03/2023 4:49 PM STORE SHOPPER Temperature 36.5 ??C (97.7 ??F) 11/03/2023 4:49 PM CS T Respiratory Rate 16 10/19/2023 4:53 PM STORE SHOPPER Oxygen Saturation 98% 11/03/2023 4:49 PM STORE SHOPPER Inhaled Oxygen Concentration - - Weight 92.1 kg (203 lb) 10/05/2024 3:30 PM STORE SHOPPER Height 167.6 cm (5' 6 ) 10/05/2024 3:30 PM STORE SHOPPER Body Mass Index 32.77 10/05/2024 3:30 PM STORE SHOPPER Plan of Treatment Not on file Procedures Procedure Name Priority Date/Time Associated Diagnosis Comments POCT OB URINE SHORT DIP (GLUCOSE, PROTEIN, KETONES) Routine 10/05/2024 3:35 PM STORE SHOPPER 25 weeks gestation of US OB HEART WITH US FOLLOW UP (C) Schedule Routine, Read Routine (OP Routine) 09/27/2024 2:16 PM STORE SHOPPER Family history of congenital heart defect POCT OB URINE SHORT DIP (GLUCOSE, PROTEIN, KETONES) Routine 09/06/2024 3:50 PM STORE SHOPPER care, first in second trimester US OB DETAIL ANATOMY SINGLE OR FIRST GESTATION Schedule Routine, Read Routine (OP Routine) 08/30/2024 2:57 PM STORE SHOPPER Encounter for supervision of normal first in first trimester 12 weeks gestation of URINE CULTURE Routine 08/14/2024 4:20 PM STORE SHOPPER Pelvic and perineal pain FERRITIN Routine 08/08/2024 8:45 AM STORE SHOPPER First trimester IRON PROFILE W/ IBC Routine 08/08/2024 8:45 AM STORE SHOPPER First trimester THYROID FUNCTION CASCADE Routine 08/08/2024 8:45 AM STORE SHOPPER First trimester POCT OB URINE SHORT DIP (GLUCOSE, PROTEIN, KETONES) Routine 08/02/2024 3:47 PM STORE SHOPPER First trimester HEPATITIS C ANTIBODY Routine 06/05/2024 4:11 PM CDT Encounter for supervision of normal first in first trimester PAP WITH REFLEX TO HIGH RISK HPV Routine 01/08/2023 4:06 PM CDT Well woman exam with routine gynecological exam from Last 3 Months or Most Recently Relevant to Health Maintenance Results * POCT OB urine short dip (glucose, protein, ketones) (10/05/2024 3:35 PM STORE SHOPPER) Glucose, ur, POC Negative Negative MG/DL Protein, ur, POC Negative Negative Ketones, ur, POC Negative Negative Lot Number [id number] Comment:Kellen:small Urine 10/05/2024 3:35 PM STORE SHOPPER us Ayleen [place] POINT OF CARE TEST ORDERA BLES Final Result * US OB Heart with US Follow up (C) (09/27/2024 2:16 PM STORE SHOPPER) Fetus# Fetus1 VIEWPOINT Estimated Weight 697 g&grams VIEWPOINT Placenta Details posterior VIEWPOINT Presentation Vertex VIEWPOINT Anatomical Region Laterality Modality Body N/A Ultrasound 09/27/2024 1:01 PM STORE SHOPPER Impressions 09/27/2024 6:15 PM STORE SHOPPER Single intrauterine at 24w 2d with positive [...] Normal amniotic fluid assessment. Normal posterior placenta. Elida Cotton MD IMG OB US PROCEDURES F inal Result * POCT OB urine short dip (glucose, protein, ketones) (09/06/2024 3:50 PM STORE SHOPPER) Pathologist [facility] Glucose, ur, POC Negative Negative MG/DL Protein, ur, POC Negative Negative Ketones, ur, POC Negative Negative Lot Number [id number] Urine 09/06/2024 3:50 PM STORE SHOPPER Elida Cotton MD POINT OF CARE TEST ORD ERABLES Final Result * US OB detail anatomy single or first gestation (08/30/2024 2:57 PM STORE SHOPPER) Fetus# Fetus1 VIEWPOINT Estimated Weight 342 g&grams VIEWPOINT Placenta Details posterior VIEWPOINT Presentation Variable VIEWPOINT Anatomical Region Laterality Modality Body N/A Ultrasound 08/30/2024 1:55 PM STORE SHOPPER Impressions 08/30/2024 2:54 PM STORE SHOPPER Single intrauterine @ 20w 2d with positive [...] culture Urine, clean voided (08/14/2024 4:20 PM STORE SHOPPER) Report Final Report: Less than 100,000 colonies/mL (clinically insignificant growth based on current clinical standards) Comment:Testing performed by : [facility], [address] [facility] [place]., [address] Organism (CLINICALLY INSIGNIFICANT GROWTH [facility] [place]) Urine, clean voided 08/14/2024 4:20 PM STORE SHOPPER 08/15/2024 4:52 AM STORE SHOPPER Narrative [facility] [place]) - 08/16/2024 1:15 PM STORE SHOPPER Testing performed by [facility] Microbiology Laboratory ([phone]) us Elida Cotton MD LAB MICROBIOLOGY - GEN ERAL ORDERABLES Final Result [facility] [place]) [address] [facility] Department [place] [address] * Thyroid Function [place] (08/08/2024 8:45 AM STORE SHOPPER) TSH 2.29 0.30 - 4.20 mcIUnit/mL Blood 08/08/2024 8:45 AM STORE SHOPPER 08/08/2024 11:07 AM STORE SHOPPER Elida Cotton MD LAB BLOOD ORDERABLES F inal Result Performing Organization Address [facility] Co de Phone Number [facility] [address] [facility] [place] [address] * (ABNORMAL) Iron profile w/ IBC (08/08/2024 8:45 AM STORE SHOPPER) [facility] Iron 58 35 - 145 mcg/dL TIBC 337 250 - 400 mcg/dL [facility] Transferrin saturation 17(L) 20 - 50 % [facility] Blood 08/08/2024 8:45 AM STORE SHOPPER 08/08/2024 11:07 AM STORE SHOPPER Elida Cotton MD LAB BLOOD ORDERABLES F inal Result Performing Organization Address [facility] de Phone Number [facility] [address] [place] [address] * Ferritin (08/08/2024 8:45 AM STORE SHOPPER) [facility] Ferritin 31 15 - 150 ng/mL Blood 08/08/2024 8:45 AM STORE SHOPPER 08/08/2024 11:07 AM STORE SHOPPER Result [facility] Elida Cotton MD LAB BLOOD ORDERABLES F inal Result Performing Organization Address [facility] Co de Phone Number [facility] [address] [facility] [place] [address] * (ABNORMAL) POCT OB urine short dip (glucose, protein, ketones) (08/02/2024 3:47 PM STORE SHOPPER) [facility] Glucose, ur, POC Negative Negative MG/DL Protein, ur, POC Negative Negative Ketones, ur, POC Negative Negative Lot Number [id number] Urine 08/02/2024 3:47 PM STORE SHOPPER Elida Cotton MD POINT OF CARE TEST [...] MICROBIOLOGY - GEN ERAL ORDERABLES Final Result Performing Organization Address City/State/[facility] Co de Phone Number [facility] [address] [facility] [place] [address] * Pap with reflex to High Risk HPV (01/08/2023 4:06 PM CDT) Thin prep (Pap test) 01/08/2023 4:06 PM CDT 01/11/2023 1:44 PM CDT Narrative PATHOLOGY [facility] - 01/15/2023 3:58 PM CDT EPIC results best viewed via link to PDF [address] ??[address] Tele: ?? Milly Sheth MD - Dog License Officer Supervisor CYTOLOGY REPORT Note to Patients: This report [...] the details. Patient Name: ??LUCILLE BETTS Address: ??[address] [place] [address] ??[id number]- Gender: ??F : ??1995 (Age: 27) Service: ?? Location: ?? Hospital #: ??[id number] Patient Type: ??[facility] [place] SPECIMEN Taken: ??01/08/2023 Reported: ??01/15/2023 Physician(s): ? [...] LAB CYTOLOGY ORDERABLE S Final Result PATHOLOGY [facility] Laboratory Receiving [address] [place], [place] [id number] from Last 3 Months or Most Recently Relevant to Health Maintenance Insurance AETNA SIG [id number] AETNA SIG [id number] BLUE ACCESS OOS Care Teams Rn Procedures Relationship Specialty Start Date End Date Radha Naranjo NP PCP - General Family Medicine 10/19/23
--- OUTSIDE RECORDS SUMMARY | 2024-10-12 10:09 | XMS_ITS | Clinical Summary ---
Author Organization [facility] Address [address] [place] [address]. [place], [place] [address] [place] [address] Care Team Providers Care Loom Fixer Name Role Phone Unavailable Primary Care Provider Unavailabl e Encounters Date Type Department Care Team Description 10/04/2024 12:17 PM CORPORATE ACCOUNT EXECUTIVE - 10/04/2024 11:59 PM CORPORATE ACCOUNT EXECUTIVE Hospital Encounter [facility] [place] [address] Elida Dietz MD Ratermann, Madeline R, DPT Discharge Disposition: Home or Self Care (Routine Discharge) 10/04/2024 Travel from Last 3 Months Social History Tobacco Use Types Packs/Day Years Used Date Smoking Tobacco: Never Assessed Comments Unknown Sex and Gender Information Value Date Recorded Sex Assigned at Female 10/04/2024 12:33 PM CORPORATE ACCOUNT EXECUTIVE Legal Sex Female 9:11 PM CORPORATE ACCOUNT EXECUTIVE Gender Identity Not on file Sexual Orientation Not on file Plan of Treatment Upcoming Encounters Date Type Department Care Team (Late st Contact Info) Description 10/17/2024 3:30 PM CORPORATE ACCOUNT EXECUTIVE Appointment [facility] [place] [address] Rajani Kay DPT [address] [place] [address] Elida Dietz MD [address] [address] 10/23/2024 3:00 PM CORPORATE ACCOUNT EXECUTIVE Appointment [facility] Outpatient [place] [address] Rajani Kay DPT [address] [place] [address] 10/30/2024 3:00 PM CORPORATE ACCOUNT EXECUTIVE Appointment [facility] [place] [address] Rajani Kay DPT [address] [place] [address] 11/06/2024 3:00 PM CORPORATE ACCOUNT EXECUTIVE Appointment [facility] [place] [address] Rajani Kay DPT [address] [place] [address] 11/16/2024 3:30 PM CORPORATE ACCOUNT EXECUTIVE Appointment [facility] [place] [address] Rajani Kay DPT [address] [place] [address] 11/20/2024 4:00 PM CORPORATE ACCOUNT EXECUTIVE Appointment [facility] [address] Rajani Kay DPT [address] [place] [address] 11/27/2024 4:00 PM CDT Appointment [facility] [address] Rajani Kay, DPT [address] [place] [address] Health Maintenance Due Date Last Done Comments Annual Physical 1998 Hepatitis C 2013 HPV Vaccines (3 - 3-dose series) 07/11/2018 04/18/2018, 08/18/2012 COVID-19 Vaccine ( season) 2024 10/16/2021, 12/14/2020, 11/23/2020 Cervical Cancer Screening Pap Smear (Age 21 to 29) Every 3 Years 01/08/2026 01/08/2023 Cervical Cancer Screening 01/08/2026 DTaP, Tdap and Td Vaccines (4 - Td or Tdap) 03/07/2030 03/07/2020, 05/11/2008, 02/21/2001, Additional history exists Hepatitis B Vaccines Completed 03/06/1996, 03/06/1996, 1995, Additional history exists Meningococcal Vaccine Completed 06/25/2014 Influenza Adult Completed 06/05/2024, 1110/2022, 06/20/2022, Additional history exists Meningococcal B Vaccine Aged Out No l onger eligible based on patient's age to complete this topic Pneumococcal Vaccine: Pediatrics (0 to 5 Years) and At-Risk Patients (6 to 64 Years) Aged Out No longer eligible based on patient's age to complete this topic RSV Immunizations Under 20 Months Aged Out No longer eligible based on patient's age to complete this topic [place] [address] [address] [place] [address] [employer]
== END 2024-10-08 09:55 | disposition home or self-care (01) ==
PROVIDERS: Emergency Provider Nurse Practitioner Family; PCP Nurse Practitioner
DX: O99.519 Diseases of the respiratory system complicating pregnancy, unspecified trimester (principal); Z3A.00 Weeks of gestation of pregnancy not specified; J10.1 Influenza due to other identified influenza virus with other respiratory manifestations; Z20.822 Contact with and (suspected) exposure to COVID-19; O99.619 Diseases of the digestive system complicating pregnancy, unspecified trimester; K21.9 Gastro-esophageal reflux disease without esophagitis; O99.280 Endocrine, nutritional and metabolic diseases complicating pregnancy, unspecified trimester; E28.2 Polycystic ovarian syndrome
CPT/HCPCS: 87426; 87804; 99212; G0463